=== PATIENT | female | born 1945 | race Caucasian/White ===

== ENCOUNTER 2020-09-14 10:55 | Day surgery (SDC) | payer MEDICARE ==
[~2020-09-14] VITALS: Ht 167.6 cm; Wt 70.8 kg
[2020-09-14 11:22] VITALS: BP 163/76
[2020-09-14] MEDS ORDERED: normal saline 1000ml 1,000 ML IV SCH (11:25)
[2020-09-14] MEDS ORDERED: ACET-1025 PO (11:29)
[2020-09-14] MEDS ORDERED: LYSI500T11 PO (11:29)
[2020-09-14] MEDS ORDERED: fentaNYL/PF 50MCG/1 ML 2ML syringe ONE (13:22)
[2020-09-14] MEDS ORDERED: LIDOcaine 1%/PF 5ML 10 MG/ML VIAL ONE (13:22)
[2020-09-14] MEDS ORDERED: heparin sodium, porcine/PF 100unit/ml 5ML syringe ONE (13:22)
[2020-09-14] MEDS ORDERED: midazolam 2 mg/2 ml injection ONE (13:22)
[2020-09-14 14:39] VITALS: BP 155/83
[2020-09-14 14:45] VITALS: BP 125/69
[2020-09-14 15:00] VITALS: BP 125/66
[2020-09-14 15:15] VITALS: BP 116/74
== END 2020-09-14 15:35 | disposition home or self-care (01) ==
LOC: SSTAY O 10:55
PROVIDERS: ATTEND Radiology Diagnostic Radiology
DX: C34.11 Malignant neoplasm of upper lobe, right bronchus or lung (principal); I10 Essential (primary) hypertension; M10.9 Gout, unspecified; Z88.2 Allergy status to sulfonamides; Z85.3 Personal history of malignant neoplasm of breast; Z87.891 Personal history of nicotine dependence; Z95.0 Presence of cardiac pacemaker; Z98.890 Other specified postprocedural states; Z91.013 Allergy to seafood; Z20.828 Contact with and (suspected) exposure to other viral communicable diseases
CPT/HCPCS: 36415; 36561; 76937; 77001; 87635; 99152; 99153; C1769; C1788; C1894; J1642; J2250; J3010